=== PATIENT | male | born 1970 | race Caucasian/White ===

== ENCOUNTER 2017-06-06 13:07 | Emergency (ER) | payer OTHER ==
[~2017-06-06] VITALS: Ht 182.9 cm; Wt 107.0 kg
[~2017-06-06 13:07] MED LIST: HYDR10SO PO; MOTR200T PO
[2017-06-06 13:18] VITALS: BP 166/88; PULSE 87; RESP 16; TEMP 98; O2SAT 98
--- NOTE | 2017-06-06 13:35 | PD ---
HPI Chief Complaint: Injury Time Seen by Provider: 13:33 Travel History International Travel<30 days: Yes Contact w/Intl Traveler<30days: [place] Traveled to: [facility] Traveled to known affect area: No History of Present Illness HPI 47-year-old male presents to the emergency department for evaluation of left ankle left foot pain that started on Thursday, 3 days ago. He states he has a history of old injury to the same foot. He states that he was walking on [facility] when he stepped on a rock the wrong way and felt a pain in his foot and ankle. He denies falling over any traumatic injury. No fevers or chills. He has history of chronic back and neck pain. Patient takes hydrocodone and duloxetine. He denies any other complaints at this time. PFSH Past Medical History Musculoskeletal: Yes (CHRONIC BACK PAIN) Past Surgical History Other Surgery: Yes (LEFT LEG LYMPH NODE) Social History Alcohol Use: No Tobacco Use: No Substance Use: No Allergies-Medications (Allergen,Severity, Reaction): Coded Allergies: No Known Allergies (Verified , 06/06/17) Reported Meds & Prescriptions Reported Meds & Active Scripts Active Reported Lortab (Hydrocodone-Acetaminophen) 10-325 Mg Tab 1 Tab PO Q4H PRN Duloxetine DR (Duloxetine HCl) 60 Mg Capdr 60 Mg PO DAILY Review of Systems Except as stated in HPI: all other systems reviewed are Neg Physical Exam Narrative GENERAL: Well-nourished, well-developed male patient, afebrile. SKIN: Focused skin assessment warm/dry. No lacerations or abrasions. HEAD: Normocephalic. Atraumatic. EYES: No scleral icterus. No injection or drainage. NECK: Supple, trachea midline. No JVD or lymphadenopathy. CARDIOVASCULAR: Regular rate and rhythm without murmurs, gallops, or rubs. Left pedal pulses 2+. RESPIRATORY: Breath sounds equal bilaterally. No accessory muscle use. Lungs sounds are clear to auscultation. GASTROINTESTINAL: Abdomen soft, non-tender, nondistended. MUSCULOSKELETAL: No cyanosis. Mild swelling over left lateral foot and left lateral ankle. He has tenderness to palpation over left lateral ankle and left lateral foot. He has full range of motion left ankle and all digits of the left foot. He has full sensation distal left lower extremity. BACK: Nontender without obvious deformity. No CVA tenderness. Data Data Last Documented VS Vital Signs Date Time Temp Pulse Resp B/P Pulse Ox O2 Delivery O2 Flow Rate FiO2 06/06/17 13:18 98.0 87 16 166/88 98 Orders Foot, Complete ([id number]) (06/06/17 ) Ankle, Complete ([id number]) (06/06/17 ) MDM Medical Decision Making Medical Screen Exam Complete: Yes Emergency Medical Condition: Yes Medical Record Reviewed: Yes Interpretation(s) Last Impressions Foot X-Ray 06/06/17 0000 Signed Impressions: Service Date/Time: Tuesday, June 06, 2017 14:16 - CONCLUSION: Intact left foot. Tray Ridley MD x-ray left ankle - CONCLUSION: Chronic findings as above. No fracture or subluxation of the left ankle. Differential Diagnosis Sprain versus contusion versus fracture Narrative Course 47-year-old male presents to the emergency department for evaluation of left ankle and foot pain. X-ray left ankle and left foot are ordered and pending. X-ray of the left ankle shows chronic findings, no fracture or subluxation of the left ankle. X-ray of the left foot shows an intact left foot. Jm bandage is applied. I offered crutches to the patient, but he states that he does not knee-deep at this time. I instructed him to ice, elevate. He is to take hydrocodone at home as needed for pain. I instructed to follow-up with orthopedist if pain does not improve or worsens. He verbalizes agreement. Patient is return here for any acute worsening of symptoms. The patient was discharged in stable condition with instructions, including return instructions and follow up instructions. Diagnosis Primary Impression: Contusion of left foot Qualified Code: S90.32XA - Contusion of left foot, initial encounter Referrals: Orthopedist as needed Patient Instructions: Contusion in Adults (ED), General Instructions Additional Instructions: Ice for 20 minutes 4-5 times daily. Elevate. Continue your prescribed pain medication as needed for pain. Follow-up with an orthopedist if pain continues or worsens. Return to the emergency department for any acute worsening of symptoms. Med/Other Pt SpecificInfo: No Change to Meds Disposition: 01 DISCHARGE HOME Condition: Stable Johanna Nj Jun 06, 2017 13:35
[2017-06-06] MEDS ORDERED: DULO1CAP2 PO (13:44)
[2017-06-06] MEDS ORDERED: HYDR-3534 PO (13:44)
[2017-06-06] MEDS ORDERED: HYDR-3535 PO (13:46)
[2017-06-06] MEDS ORDERED: DULO1CAP3 PO (13:46)
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
== END 2017-06-06 15:26 | disposition home or self-care (01) ==
LOC: PHED 13:07
DX: S90.32XA Contusion of left foot, initial encounter (principal); W22.8XXA Striking against or struck by other objects, initial encounter; Y93.01 Activity, walking, marching and hiking
CPT/HCPCS: 73610; 73630; 99283